=== PATIENT | female | born 1990 | race African-American/Black ===

== ENCOUNTER 2025-03-26 14:54 | Emergency (ER) | payer BC ==
[2025-03-26] MEDS ORDERED: Dicyclomine 20 MG TAB ONE (16:28)
== END 2025-03-26 16:30 | disposition home or self-care (01) ==
LOC: CSHERS 14:54
DX: R19.7 Diarrhea, unspecified (principal); F17.210 Nicotine dependence, cigarettes, uncomplicated
CPT/HCPCS: 99283

== ENCOUNTER 2025-04-12 09:58 | Emergency (ER) | payer BC, MEDICAID ==
[2025-04-12] MEDS ORDERED: Racepinephrine 2.25% 0.5 ML NEB ONE (11:35)
== END 2025-04-12 12:10 | disposition home or self-care (01) ==
LOC: CSHERS 09:58
DX: J98.8 Other specified respiratory disorders (principal); B97.89 Other viral agents as the cause of diseases classified elsewhere; F17.210 Nicotine dependence, cigarettes, uncomplicated; Z55.6 Problems related to health literacy; Z75.3 Unavailability and inaccessibility of health-care facilities
CPT/HCPCS: 87428; 99283